=== PATIENT | male | born 1990 | race Caucasian/White ===

== ENCOUNTER 2017-03-29 22:43 | Outpatient (CLI) | payer OTHER ==
--- NOTE | 2017-03-30 00:09 | CT ---
EXAM DESCRIPTION: Abdomen/Pelvis w/wo Contrast CLINICAL HISTORY: 26 years Male ABD PAIN COMPARISON: None. TECHNIQUE: Contiguous axial images obtained through the abdomen and pelvis following IV contrast. Reformatted images obtained. This exam was performed according to our department optimization program which includes automated exposure control, adjustment of the mA and/or kv according to patient size and/or use of iterative reconstruction technique. FINDINGS: The liver appears unremarkable. The spleen and pancreas appear unremarkable. No adrenal masses. There are bilateral renal cysts which appear simple and do not require further follow-up. These measure between 1.2 and 2.3 cm. No hydronephrosis. The gallbladder is visualized. No aneurysmal dilatation of the aorta. Scattered small mesenteric lymph nodes. No bowel obstruction. Question small amount of wall thickening and stranding along loops of small bowel in the left mid abdomen. Enteritis is not excluded. The appendix is unremarkable. No significant free fluid noted. IMPRESSION: Question minimal wall thickening and stranding in some jejunal loops which could reflect enteritis. No additional evidence of acute process Electronically signed by: Christiane Hoang 03/30/2017 12:08 AM CDT
== END 2017-03-30 00:30 | disposition home or self-care (01) ==
LOC: RAD 22:43 → LAB.O 03-30 00:30
PROVIDERS: ATTEND Surgery
DX: R11.2 Nausea with vomiting, unspecified (principal); R10.10 Upper abdominal pain, unspecified
CPT/HCPCS: 36415; 74178; 80048; 85025; G0463